=== PATIENT | female | born 1990 | race Caucasian/White ===

== ENCOUNTER 2022-11-11 22:20 | Emergency (ER) | payer SELFPAY ==
[~2022-11-11] VITALS: Ht 149.9 cm; Wt 64.0 kg
[2022-11-11 22:22] VITALS: BP 185/99
== END 2022-11-12 01:59 | disposition home or self-care (01) ==
LOC: ER 22:20
DX: L03.012 Cellulitis of left finger (principal); L02.512 Cutaneous abscess of left hand
CPT/HCPCS: A9270